=== PATIENT | male | born 1995 | race Hispanic/Latino ===

== ENCOUNTER 2019-09-01 05:21 | Emergency (ER) | payer MEDICAID, OTHER, SELFPAY ==
[2019-09-01] MEDS ORDERED: ACETAMINOPHEN EXTRA STRENGTH 500 MG TABLET ONE (05:32)
[2019-09-01] MEDS ORDERED: IBUPROFEN 600 MG TABLET ONE (05:32)
== END 2019-09-01 06:20 | disposition home or self-care (01) ==
LOC: EDH 05:21
DX: U07.1 COVID-19 (principal); B34.9 Viral infection, unspecified; Z72.0 Tobacco use
CPT/HCPCS: 36415; 87804 ×2; 99283; U0003

== ENCOUNTER 2020-07-17 20:09 | Emergency (ER) | payer OTHER ==
[2020-07-17] MEDS ORDERED: KETOROLAC TROMETHAMINE 60 MG/2 ML VIAL ONE (21:25)
[2020-07-17] MEDS ORDERED: HYDROCODONE/ACETAMINOPHEN 10/325 MG TAB ONE (21:26)
[2020-07-17] MEDS ORDERED: CYCLOBENZAPRINE HCL 10 MG TABLET ONE (21:26)
== END 2020-07-17 21:59 | disposition home or self-care (01) ==
LOC: EDH 20:09
DX: S39.012A Strain of muscle, fascia and tendon of lower back, initial encounter (principal); X58.XXXA Exposure to other specified factors, initial encounter; Y93.89 Activity, other specified; Y92.89 Other specified places as the place of occurrence of the external cause; Y99.8 Other external cause status
CPT/HCPCS: 72100; 96372; 99283; J1885

== ENCOUNTER 2023-01-03 20:51 | Emergency (ER) | payer BC, MEDICARE ==
[~2023-01-03] VITALS: Ht 182.9 cm; Wt 106.1 kg
[2023-01-04] MEDS ORDERED: CEPHALEXIN 500 MG CAPSULE PO ONE
[2023-01-04] MEDS ORDERED: CEPH500T PO (00:30)
[2023-01-04 00:40] VITALS: BP 123/72; PULSE 72; RESP 15; O2SAT 98
== END 2023-01-04 00:45 | disposition home or self-care (01) ==
LOC: EDH 20:51
DX: S81.821A Laceration with foreign body, right lower leg, initial encounter (principal); X58.XXXA Exposure to other specified factors, initial encounter; Y93.89 Activity, other specified; Y92.89 Other specified places as the place of occurrence of the external cause; Y99.8 Other external cause status
CPT/HCPCS: 12002

== ENCOUNTER 2024-05-01 20:20 | Emergency (ER) | payer BC, OTHER ==
[~2024-05-01] VITALS: Ht 182.9 cm; Wt 99.8 kg
[~2024-05-01 20:20] MED LIST: CEPH500T PO
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
[2024-05-01 20:58] LABS: RAPID GROUP A STREP negative (NEGATIVE)
[2024-05-01 21:02] LABS: SARS-CoV-2, RNA, NAAT NEGATIVE SARS CoV-2 (NEGATIVE)
[2024-05-01 21:09] LABS: INFLUENZA TYPE A Negative For Type A (NEGATIVE)
[2024-05-01 21:11] LABS: INFLUENZA TYPE B Positive For Type B (NEGATIVE)
[2024-05-01] MEDS ORDERED: OSEL75 PO (21:35)
[2024-05-01] MEDS: ibuPROFEN 800 MG TAB PO SCH (21:52)
[2024-05-01 21:59] VITALS: BP 152/88; PULSE 100; RESP 18; TEMP 99.2; O2SAT 98
== END 2024-05-01 22:01 | disposition home or self-care (01) ==
LOC: EDH 20:20
DX: J10.1 Influenza due to other identified influenza virus with other respiratory manifestations (principal); I10 Essential (primary) hypertension; Z79.899 Other long term (current) drug therapy; Z20.822 Contact with and (suspected) exposure to COVID-19
CPT/HCPCS: 87635; 87804; 87880; 99283

== ENCOUNTER 2024-05-05 16:40 | Emergency (ER) | payer OTHER ==
[~2024-05-05] VITALS: Ht 182.9 cm; Wt 99.8 kg
[~2024-05-05 16:40] MED LIST changes: +OSEL75 PO
[2024-05-05] MEDS ORDERED: IBUP-2077 PO (16:55)
[2024-05-05] MEDS ORDERED: CIPOTIC OTIC (16:55)
--- NOTE | 2024-05-05 16:56 | ERN ---
ED Note History of Present Illness Stated Complaint: LT EAR ACHE Chief Complaint: Earache Time Seen by MD: 16:42 Dictation: PATIENT IS A 29-YEAR-OLD MALE COMING IN TODAY WITH COMPLAINTS OF LEFT EAR PAIN ONSET THIS MORNING WITH BLEEDING FROM HIS EAR. HE STATES HE HAD BEEN CLEANING HIS EAR WHEN IT STARTED BLEEDING AND NOW IT IS HURTING VERY BAD. NO FEVER NO CHILLS NO NAUSEA VOMITING. HE STATES SHE HAS USED [id number] EAR DROPS IN HIS EAR. Allergies: Coded Allergies: No Known Allergies (Unverified Allergy, Unknown, 07/17/20) Home Meds Active Scripts Ibuprofen (Ibuprofen 800 mg Tab) 800 Mg Tab, 800 MG PO Q8H PRN for fever or pain, #30 TAB 0 Refills Prov:JORDAN GUSMAN NP 05/05/24 Ciprofloxacin/Hydrocortisone (Cipro Hc Otic Suspension) 0.2 %-1 % Drops.susp, 4 DROP OTIC BID for 7 Days, #10 ML 0 Refills FOUR DROPS TO LEFT EAR TWICE A DAY WITH COTTON FOR SEVEN DAYS. 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 01/04/23 Past Medical History Past Medical History: No Pertinent History Surgical History: Other Surgical History Other: LT CLAVICULAR SX RN Note Reviewed/Agreed w/PFSH: Yes Review of System Dictation CONSTITUTIONAL: NEGATIVE EXCEPT FOR HPI HEAD/FACE: NEGATIVE EXCEPT FOR HPI EENT: NEGATIVE EXCEPT FOR HPI LEFT EAR PAIN WITH BLEEDING RESPIRATORY: NEGATIVE EXCEPT FOR HPI GASTROINTESTINAL/ABDOMINAL: NEGATIVE EXCEPT FOR HPI GENITOURINARY: NEGATIVE EXCEPT FOR HPI MUSCULOSKELETAL: NEGATIVE EXCEPT FOR HPI INTEGUMENTARY: NEGATIVE EXCEPT FOR HPI NEUROLOGICAL/PSYCH: NEGATIVE EXCEPT FOR HPI HEMATOLOGIC/LYMPHATIC: NEGATIVE EXCEPT FOR HPI ALL SYSTEMS NEGATIVE, EXCEPT NOTED ABOVE. 13 POINT REVIEW OF SYSTEMS ASSESSED AND ALL NEGATIVE EXCEPT FOR ABOVE. Initial Vital Sign VS Vital Signs Date Time Temp Pulse Resp B/P (MAP) Pulse Ox O2 Delivery O2 Flow Rate FiO2 05/05/24 16:42 100.0 72 18 153/96 0 Physical Exam Dictation VITAL SIGNS REVIEWED GENERAL APPEARANCE: ALERT, ORIENTED X 3, MODERATE ACUTE DISTRESS, WELL DEVELOPED, NOURISHED. HEAD AND FACE: NON-TRAUMATIC. EYES: PERRL, PINK CONJUNCTIVAS, EYELID NO TRAUMA, ANTERIOR CHAMBER WITH ARCUS SENILIS. EARS: PINNAS INTACT AND NO SIGNS OF TRAUMA O LEFT TM IS INTACT. ABRASION NOTED TO LEFT OTIC CANAL. NO MASTOID TENDERNESS NOSE: NO DISCHARGE, NO BLEEDING. OROPHARYNX: MOUTH NORMAL, TONGUE PINK, PHARYNX CLEAR,NO ERYTHEMA, TONSILS NO EXUDATES, NO ABSCESSES NOTED, MUCOUS M EMBRANE MOIST NECK: SUPPLE, NON-TENDER, NO THYROMEGALY, NO MASSES, NO JVD, NO BRUITS BREAST:DEFERRED CHEST:NO TENDERNESS, NO CREPITUS, NO PARADOXICAL MOVEMENT, NO RETRACTIONS LUNGS:CLEAR, WELL-VENTILATED, SYMMETRIC, NO RALES, NO WHEEZING, NO RHONCHI, NO STRIDOR, GOOD BREATH SOUNDS BILATERALLY HEART: REGULAR RATE, REGULAR RHYTHM, NO MURMUR, NO GALLOPS VASCULAR: NO PERIPHERAL EDEMA, ABDOMEN: SOFT, POSITIVE BOWEL SOUNDS, NONDISTENDED, NO GUARDING, NONTENDER, NO REBOUND, NO MASSES NO HEPATOMEGALY, NO SPLENOMEGALY, NO KARIMI'S SIGN, NO HERNIAS. RECTAL: DEFERRED GENITAL: DEFERRED NEUROLOGICAL: NORMAL SPEECH, MOTOR FUNCTION INTACT, SENSORY FUNCTION INTACT MUSCULOSKELETAL: NECK NONTENDER, FULL RANGE OF MOTION, BACK NONTENDER, FULL RANGE OF MOTION, EXTREMITIES: NONTENDER, FULL RANGE OF MOTION SKIN: COLOR PINK, DRY, NO TURGOR, NO RASH, NO LACERATIONS, NO ABRASIONS, NO CONTUSIONS. LYMPHATIC: DEFERRED Results (Laboratory/Radiology) Labs Reviewed?: Yes ED Course ED Course Orders Procedure Category Date Status Time Ketorolac 60mg/2ml PHA 05/05/24 In Process (Toradol 60mg/2ml) 17:00 Current Medications Medications (Trade) Dose Ordered Sig/Andrew Route PRN Reason Start Time Stop Time Status Last Admin Dose Admin Ketorolac Tromethamine (toRADol 60MG/ 2ML) 60 mg ONCE ONCE IM 05/05/24 17:00 05/05/24 17:01 Vital Signs Date Time Temp Pulse Resp B/P (MAP) Pulse Ox O2 Delivery O2 Flow Rate FiO2 05/05/24 16:42 100.0 72 18 153/96 0 1650/NO LABS OR IMAGING INDICATED. PATIENT DISCHARGED HOME WITH OTITIS EXTERNA, GIVEN TORADOL CIPRODEX OTIC, TYLENOL NO. 3 AND TOLD SEE HIS PRIMARY CARE DOCTOR FOR REFERRAL TO ENT Medical Decision Making MDM MEDICAL DISCHARGE MAKING BASED ON EMPIRIC TREATMENT FOR LEFT OTITIS EXTERNA DISCHARGED HOME WITH IBUPROFEN 800/CIPRODEX TOLD SEE HIS PRIMARY CARE DOCTOR FOR REFERRAL TO ENT DX & DISP Disposition: Discharge Departure Impression: Primary Impression: Left otitis externa Additional Impression: Abrasion of left ear canal Condition: Stable Scripts Ibuprofen (Ibuprofen 800 mg Tab) 800 Mg Tab 800 MG PO Q8H PRN for fever or pain, #30 TAB 0 Refills Prov: JORDAN GUSMAN NP 05/05/24 Ciprofloxacin/Hydrocortisone (Cipro Hc Otic Suspension) 0.2 %-1 % Drops.susp 4 DROP OTIC BID for 7 Days, #10 ML 0 Refills FOUR DROPS TO LEFT EAR TWICE A DAY WITH COTTON FOR SEVEN DAYS. Prov: JORDAN GUSMAN NP 05/05/24 Additional Instructions: FOLLOW-UP WITH PRIMARY CARE PROVIDER IN 1 TO 2 DAYS. TAKE MEDICATIONS DIRECTED HERE IN THE EMERGENCY ROOM. OKAY TO CONTINUE HOME MEDICATIONS UNLESS OTHERWISE DISCUSSED DURING YOUR VISIT IN THE EMERGENCY ROOM TODAY. RETURN TO YOUR NEAREST EMERGENCY ROOM IF SYMPTOMS WORSEN OR IF THERE IS NO IMPROVEMENT. CALL 911 IF YOU NEED IMMEDIATE ASSISTANCE. TAKE TYLENOL OR MOTRIN [id number] NEEDED AND IF NO CONTRAINDICATIONS ARE PRESENT. INCREASE ORAL HYDRATION. A WOUND CULTURE OR URINE CULTURE WAS ORDERED HERE IN THE EMERGENCY ROOM DEPARTMENT PLEASE FOLLOW-UP WITH PRIMARY CARE PROVIDER AND ADVISE THEM TO GET REPEAT PORTS FROM OUR FACILITY. IF YOU HAD ANY KIM WRAP/SPLINTS THAT WERE APPLIED HERE, PLEASE DO NOT REMOVE THEM UNTIL YOU SEE YOUR PRIMARY CARE OR SPECIALTY. TO NOT PLACE ANY FOREIGN BODY INTO YOUR EARS. USE CIPRODEX DROPS DIRECTED TWICE A DAY WITH COTTON BALLS FOR SEVEN DAYS. SEE YOUR PRIMARY CARE DOCTOR FOR REFERRAL TO ENT IN 1-2 DAYS IF NOT IMPROVED Referrals: EDGAR WATSON MD (PCP) Time of Disposition: 16:54 I have reviewed the case, and I agree with, Diagnosis and Plan JORDAN GUSMAN NP May 05, 2024 16:56 AUTUMN TERRELL DO May 05, 2024 16:57
[2024-05-05] MEDS: ketOROlac 60 MG VIAL (30MG/ML) IM ONE (17:33)
[2024-05-05 17:34] VITALS: BP 149/94; PULSE 74; RESP 17; TEMP 99.8; O2SAT 99
== END 2024-05-05 17:34 | disposition home or self-care (01) ==
LOC: EDH 16:40 → EEVIPCON 16:40 → EDH 17:34
DX: S00.412A Abrasion of left ear, initial encounter (principal); H60.92 Unspecified otitis externa, left ear; Z79.899 Other long term (current) drug therapy; Z98.890 Other specified postprocedural states; X58.XXXA Exposure to other specified factors, initial encounter; Y93.89 Activity, other specified; Y92.89 Other specified places as the place of occurrence of the external cause; Y99.8 Other external cause status
CPT/HCPCS: 99283; 96372; J1885